=== PATIENT | male | born 1975 | race American Indian/Alaskan Native ===

== ENCOUNTER 2020-08-02 06:59 | Day surgery (SDC) | payer BC ==
[2020-08-02] MEDS ORDERED: SODIUM CHLORIDE 0.9% 1000 ML 1,000 ML IV SCH (07:00)
--- NOTE | 2020-08-02 08:18 | Anesthesia Day of Surgery ---
Anesthesia Day of Surgery - Day of Surgery Patient Examined: Yes Patient H&P Reviewed: Yes Patient is NPO: Yes
--- NOTE | 2020-08-02 08:18 | Anesthesia Consultation ---
Anesthesia Consult and Med Hx Date of service: 08/02/20 - Airway Anesthetic Teeth Evaluation: Good ROM Head & Neck: Adequate Mental/Hyoid Distance: Adequate Mallampati Class: Class III Intubation Access Assessment: Possibly Difficult - Pre-Operative Health Status ASA Pre-Surgery Classification: ASA2 Proposed Anesthetic Plan: MAC - Pulmonary Hx Smoking: Yes (Quit smoking in 2019) Hx Sleep Apnea: No (snoring) - Cardiovascular System Hx Hypertension: Yes - Gastrointestinal Hx Gastroesophageal Reflux Disease: Yes - Other Systems Hx Obesity: Yes (BMI 35.0)
[2020-08-02] MEDS ORDERED: propofoL 200 MG/20 ML VIAL IV ONE ×3 (09:04→09:36)
--- NOTE | 2020-08-02 10:08 | Procedure Note ---
Date of procedure: 08/02/20 Pre-op diagnosis: GERD and Abdominal Pain Post-op diagnosis: other (Mild to Moderate Erosive Esophagitis/ Moderate,Hiatal Hernia/ Gastritis/ R/O Celaic Disease/ No Peptic Ulcer Disease nioted/ R/O Microscopic Colitis and R/O Ileitis) Procedure: EGD with Biopsy and Colonoscopy with Biopsy Anesthesia: KATHERINE Surgeon: COOKIE GILBERT Estimated blood loss: minimal Pathology: list Specimen disposition: to lab Condition: stable Disposition: same day (Treat PPI; avoid aspirin and NSAID for 4 days, otherwise resume home medication. Follow up in 1 to 2 weeks ([phone]).)
--- NOTE | 2020-08-02 10:12 | Operative Report ---
PROCEDURE: Esophagogastroduodenoscopy with biopsy. INDICATIONS: This is a 44-year-old gentleman who has been having abdominal pain and atypical chest pain as well as GERD symptoms. He had his atypical chest pain worked up at a hospital and was told that he did not have any cardiac issues. He had been a smoker until fairly recently. EGD was done to assess for any upper GI pathology. DESCRIPTION OF PROCEDURE: The procedure was done after getting informed consent with MAC anesthesia. Instrument was passed through the hypopharynx into the esophagus, which showed mild to moderate erosive esophagitis. Biopsy and photodocumentation was done from the distal esophagus to assess for the severity of the erosive esophagitis. The stomach showed moderate hiatal hernia on the retroverted view. Biopsy was done from the gastric antrum, gastric body and angular incisura to rule out for H. pylori and atrophic gastritis. The pylorus was patent. The duodenum in the first and second portion appeared normal. Biopsy was done from the second part to rule out for possible celiac disease. ASSESSMENT: Gastroesophageal reflux disease symptoms, mild to moderate erosive esophagitis, moderate hiatal hernia, gastritis, rule out celiac disease. No peptic ulcer disease noted. PLAN: To treat the patient with PPI, have the patient avoid aspirin and aspirin-related products for the next few days and advised the patient about lifestyle changes because of the hiatal hernia and also advised the patient to refrain from smoking and alcoholic beverages. A colonoscopy will also be done for further assessment of the patient's abdominal pain. The procedure was done in the GI lab with assistance of the GI lab team, which included RN, Trixie Knight; and yvette Bragg with assistance of anesthesia. JOB# [id number] CASIE/ROCHELLE
--- NOTE | 2020-08-02 10:14 | Operative Report ---
PROCEDURE: Colonoscopy with biopsy. INDICATIONS FOR PROCEDURE: The patient had an EGD done prior to the colonoscopy, which showed a moderate hiatal hernia, mild to moderate erosive esophagitis and gastritis. Biopsy was also done to rule out for celiac disease, but no peptic ulcer disease was noted. DESCRIPTION OF PROCEDURE: Colonoscopy was done after getting informed consent. Initial rectal exam was unremarkable. Instrument was passed through the rectum onto the cecum, which was identified by the ileocecal valve and the appendiceal orifice. The terminal ileum was intubated, showed normal mucosa. Biopsy was done to rule out for possible ileitis. Visualization was fair to good. Cecum, ascending colon, transverse colon, descending colon, and sigmoid as well as the rectum showed normal mucosa. There was no evidence of any polyps or diverticular disease. Random biopsies were done to rule out for possible microscopic colitis because of the patient's underlying abdominal pain and the rectum appeared normal on the retroverted view, no internal hemorrhoids were noted. There was minimal bleeding associated with the procedure. No complications associated with the procedure. ASSESSMENT: Abdominal pain, rule out microscopic colitis, rule out ileitis. No colon polyps or diverticular disease noted. PLAN: To treat the patient with PPI. I advised the patient about lifestyle changes with the hiatal hernia. Further treatment adjustment will be according to the biopsy findings. I advised the patient to avoid aspirin and aspirin-related products for the next few days and follow up in the office in 1-2 weeks' time. The procedure was done in the GI lab with assistance of the GI lab team, which included RN, Trixie Knight; Yemi crawford and with assistance of anesthesia. JOB# [id number] CASIE/ROCHELLE
[2020-08-02 10:48] VITALS: BP 137/89
--- NOTE | 2020-08-02 12:28 | Post Anesthesia Evaluation ---
- Post Anesthesia Evaluation Patient Participated: Yes Airway Patent: Yes Stable Respiratory Function: Yes Nausea/Vomiting: No Temp > 96.8F: Yes Pain Manageable: Yes Adequeate Hydration: Yes Anesthesia Complications: No
== END 2020-08-02 07:00 | disposition home or self-care (01) ==
LOC: GIO 06:59
DX: R10.9 Unspecified abdominal pain (principal); R07.89 Other chest pain; K21.00 Gastro-esophageal reflux disease with esophagitis, without bleeding; K44.9 Diaphragmatic hernia without obstruction or gangrene; K31.89 Other diseases of stomach and duodenum; K29.70 Gastritis, unspecified, without bleeding; K63.89 Other specified diseases of intestine; I10 Essential (primary) hypertension; E66.9 Obesity, unspecified; Z79.899 Other long term (current) drug therapy; Z87.891 Personal history of nicotine dependence; Z68.35 Body mass index [BMI] 35.0-35.9, adult
CPT/HCPCS: 43239; 45380; 88305; 88342; J2704; J7030